=== PATIENT | female | born 1955 | race African-American/Black ===

== ENCOUNTER → 2016-12-19 | Outpatient (CLI) | payer OTHER ==
--- NOTE | ~2016-12-19 | US5 ---
[facility] A Service of [facility] & [facility] RADIOLOGY TEXT RESULTS PATIENT: CRYSTAL FELTON LOCATION: US : 53 UNIT #: [id number] AGE: [address]: LEXIE RICE MD SEX: F ORDER DR: [id number] [facility]. [place], [place] [address] [id number] O MR#: [id number] Acc #: [id number] NAME: CRYSTAL FELTON : 1955 SEX: F STUDY DATE/TIME: 12/19/2016 8:04 UNIT: [facility] ROOM: STUDY DESCRIPTION: US Abdominal Complete Attending Physician: Lexie Rice M.D. Ordering Physician: Lexie Rice M.D. Primary Care Physician: Lexie Rice M.D. MEDICAL IMAGING REPORT This report is preliminary unless electronic signature is present EXAM Abdominal ultrasound complete, 12/19/2016 INDICATION 61-year-old female with right upper quadrant pain. Symptoms a few times over the past few weeks, nausea intermittently. No surgical history. TECHNIQUE Sonographic imaging of the abdomen was performed. COMPARISON 09/26/2016 FINDINGS Portions of the abdomen were obscured by bowel gas or obscured due to an inadequate sonographic window. These were apparently the best images possible. This includes the pancreas, liver, both kidneys and spleen as well as the gallbladder. Segmentally visualized aorta and IVC are unremarkable. Pancreas not well visualized or assessed but grossly unremarkable. Survey images of the liver demonstrate no focal mass, ascites or intrahepatic ductal dilatation. The liver measures about 14.6 cm long axis. The kidneys are nonobstructed with the right measuring 10.5 cm long axis and the left 10.4 cm. Probable column of Noé or prominent renal pelvis associated with the left kidney. The area of interest is in the mid pole left kidney measuring up to 1.6 cm. This could also potentially represent a complicated cyst. There is no correlate on the prior study to assess stability. The spleen measures 8.3 cm long axis and is grossly unremarkable. The gallbladder is not well distended or evaluated. No sonographic Mullins's sign was described. No evidence of cholelithiasis or distinct wall STS. [facility] A Service of [facility] & [facility] RADIOLOGY TEXT RESULTS PATIENT: CRYSTAL FELTON [id number] : 53 UNIT #: [id number] AGE: [address]: LEXIE RICE MD SEX: F ORDER DR: janeth. Extrahepatic common bile duct measures about 6.0 mm. IMPRESSION 1. Limited examination due to an inadequate sonographic window and obscuration of abdominal structures by bowel gas. 2. No clearly acute process identified. Gallbladder not well distended or evaluated. 3. There is a 1.6 cm hypoechoic lesion in the left mid pole kidney. This may represent a prominent renal pelvis, column of Noé or complicated cyst. Options for further assessment or followup would include a repeat ultrasound in 6 months or a contrast enhanced CT for further assessment. A benign etiology is favored but this is incompletely characterized on this examination. Dictated by... Sanju Singh M.D. THIS IS AN ELECTRONICALLY VERIFIED REPORT Sanju Singh M.D. at 12/19/2016 4:15 PM Srinivas TD: 12/19/2016 12:26 JOB #: [id number] MEDICAL IMAGING REPORT COPY
== END | disposition home or self-care (01) ==
LOC: CGUS 08:50
DX: R10.11 Right upper quadrant pain (principal); N28.89 Other specified disorders of kidney and ureter
CPT/HCPCS: 76700

== ENCOUNTER → 2017-01-17 | Outpatient (CLI) | payer OTHER ==
--- NOTE | ~2017-01-17 | CT6 ---
[facility] A Service of [facility] RADIOLOGY TEXT RESULTS PATIENT: CRYSTAL FELTON LOCATION: [facility] : 53 UNIT #: [id number] AGE: [address]: LEXIE DIA MD SEX: F ORDER DR: [id number] [facility]. [place], [place] [address] [id number] O MR#: [id number] Acc #: [id number] NAME: CRYSTAL FELTON : 1955 SEX: F STUDY DATE/TIME: 01/17/2017 13:12 UNIT: [facility] ROOM: STUDY DESCRIPTION: CT Abdomen WWo Cont Attending Physician: Lexie Dia M.D. Referring Physician: Lexie Dia M.D. Ordering Physician: Lexie Dia M.D. Primary Care Physician: Lexie Dia M.D. MEDICAL IMAGING REPORT This report is preliminary unless electronic signature is present EXAM CT abdomen with and without contrast INDICATIONS Right flank pain for the past 6 months. Abnormal finding diagnostic imaging of the kidneys. PROCEDURE Unenhanced CT of the abdomen. Postcontrast CT of the abdomen. Multiphase acquisition through the kidneys. This CT exam was performed with one or more of the following radiation dose reduction techniques: automatic exposure control, adjustment of mA and/or kV according to patient size, and iterative reconstruction. COMPARISON Abdominal ultrasound from 12/19/2016 FINDINGS Abdomen without contrast: Included lung bases are clear. No radiodense gallstones. No radiodense renal calculus. Abdomen with contrast: The liver, spleen, kidneys, adrenal glands, pancreas unremarkable. The included bowel loops are nondilated. There are uncomplicated diverticula scattered throughout the included portions of the colon. No enhancing renal mass. There are 2 small cysts in the left kidney, measuring up to 7 mm. No aggressive appearing bone lesion. IMPRESSION 1. No renal mass. 2. There are 2 subcentimeter cyst in the left kidney. [facility] A Service of [facility] RADIOLOGY TEXT RESULTS PATIENT: CRYSTAL FELTON LOCATION: [facility] : 53 UNIT #: [id number] AGE: [address]: LEXIE DIA MD SEX: F ORDER DR: 3. Uncomplicated diverticula throughout the colon. Dictated by... Wiilam Mata M.D. THIS IS AN ELECTRONICALLY VERIFIED REPORT Wiliam Mata M.D. at 01/18/2017 7:19 AM EED/to TD: 01/17/2017 22:06 JOB #: [id number] MEDICAL IMAGING REPORT Page 1 of 1 COPY
[2017-01-17 17:01] LABS: POC - CREATININE 0.99 mg/dL (0.44-1.03); POC - GFR >60.0 mL/min (>60)
== END | disposition home or self-care (01) ==
LOC: CCAT 12:14
PROVIDERS: Internal Medicine
DX: R93.41 Abnormal radiologic findings on diagnostic imaging of renal pelvis, ureter, or bladder (principal); N28.1 Cyst of kidney, acquired; K57.30 Diverticulosis of large intestine without perforation or abscess without bleeding
CPT/HCPCS: 74170; 82565; Q9967